=== PATIENT | female | born 1965 | race Caucasian/White ===

== ENCOUNTER 2019-05-31 13:55 | Emergency (ER) | payer OTHER ==
--- NOTE | 2019-05-31 14:02 | PDOC ---
Rapid Medical Evaluation Time Seen by Provider: 05/31/19 14:01 Medical Evaluation: 05/31/19 14:01 I have performed a brief in-person evaluation of this patient. The patient presents with a chief complaint of: LLE pain on tamoxifen Pertinent physical exam findings: No swelling, erythema, cords. Multiple varicosities I have ordered the following: Sono The patient will proceed to the ED for further evaluation. 05/31/19 14:02 Discharge Disposition - Diagnosis Leg pain - Referrals - Patient Instructions - Post Discharge Activity
[2019-05-31 14:04] VITALS: PULSE 84; TEMP 98.6; BMI 19.3
[2019-05-31 14:05] VITALS: BP 123/73
--- NOTE | 2019-05-31 15:16 | PDOC ---
History of Present Illness - General Chief Complaint: Pain Stated Complaint: PAIN Time Seen by Provider: 05/31/19 14:01 History Source: Patient Exam Limitations: No Limitations - History of Present Illness Initial Comments: 05/31/19 14:12 53-year-old female currently on tamoxifen presents to the ED with complaints of left lower extremity soreness worsen to the calf and ankle region. Patient states area appears slightly swollen. Patient denies injury but states has multiple varicose veins throughout her legs. Patient denies history of pulmonary embolism and denies difficulty breathing currently. Timing/Duration: intermittent Severity: mild Associated Symptoms: reports: denies symptoms Past History - Travel Traveled outside of the country in the last 30 days: No Close contact w/someone who was outside of country & ill: No - Past Medical History Cancer: Yes COPD: No - Suicide/Smoking/Psychosocial Hx Smoking History: Never smoked Have you smoked in the past 12 months: No Information on smoking cessation initiated: No Hx Alcohol Use: No Drug/Substance Use Hx: No Patient Lives Alone: No Lives with/in: spouse/SO Review of Systems - Review of Systems Able to Perform ROS?: Yes Constitutional: No: Symptoms Reported HEENTM: No: Symptoms Reported Respiratory: No: Symptoms reported Cardiac (ROS): Yes: Edema ABD/GI: No: Symptoms Reported : No: Symptoms Reported Musculoskeletal: Yes: Muscle Pain (left calf) Integumentary: No: Symptoms Reported Neurological: No: Symptoms reported Endocrine: No: Symptoms Reported Hematologic/Lymphatic: No: Symptoms Reported *Physical Exam - Vital Signs Last Vital Signs Temp Pulse Resp BP Pulse Ox 98.6 F 84 18 123/73 100 05/31/19 14:02 05/31/19 14:02 05/31/19 14:02 05/31/19 14:02 05/31/19 14:02 - Physical Exam General Appearance: Yes: Nourished, Appropriately Dressed. No: Apparent Distress Respiratory/Chest: positive: Lungs Clear, Normal Breath Sounds. negative: Respiratory Distress, Accessory Muscle Use Cardiovascular: positive: Regular Rhythm, Regular Rate. negative: Murmur Vascular Pulses: Dorsalis-Pedis (R): 2+, Doralis-Pedis (L): 2+ Gastrointestinal/Abdominal: positive: Soft. negative: Tenderness Extremity: positive: Normal Capillary Refill, Normal Inspection, Normal Range of Motion, Swelling (mild trace- 1+ nonpitting to bilateral lower extremities), Other (multiple varicosities to bilateral lower extremities). negative: Tender , Calf Tenderness Integumentary: positive: Normal Color, Warm, Moist Medical Decision Making - Medical Decision Making 05/31/19 14:16 CC: Left lower extremity discomfort along with mild swelling noted since yesterday no other complaints. Patient on tamoxifen. Exam. Patient with trace to minimal bilateral lower extremity edema with no reproducible tenderness. Homans sign negative. Plan left duplex of the lower extremity 05/31/19 15:57 Duplex of lower extremity showed no DVT. Bakers cyst of the left popliteal fossa measuring 2. 0.4 x 1.4 cm. *DC/Admit/Observation/Transfer Diagnosis at time of Disposition: Leg pain, Guzmán's cyst of knee - Discharge Dispostion Disposition: HOME Condition at time of disposition: Good - Referrals Referrals: Lissett Leong [Primary Care Provider] - - Patient Instructions Printed Discharge Instructions: Bakers Cyst Additional Instructions: Your Ultrasound was negative for clot. At this time they noticed a cyst behind her left knee which may be causing some your symptoms. Follow-up with her doctor and take copy of the ultrasound report with you. Otherwise you can take Motrin 600 mg at 975 of Tylenol every 6-8 hours for adequate pain control. - Post Discharge Activity
== END 2019-05-31 16:09 | disposition home or self-care (01) ==
LOC: JER 13:55
DX: M71.22 Synovial cyst of popliteal space [Baker], left knee (principal)
CPT/HCPCS: 93971-TC; 99281-25

== ENCOUNTER 2025-05-02 16:37 | Emergency (ER) | payer OTHER ==
[2025-05-02 16:44] VITALS: RESP 18; BMI 27.8
[2025-05-02] MEDS ORDERED: ACETAMINOPHEN 325 MG TABLET (FP) ONE (17:58)
[2025-05-02] MEDS: ACETAMINOPHEN 325 MG TABLET (FP) PO ONE (18:01)
[2025-05-02 18:31] VITALS: BP 123/75; PULSE 64; TEMP 97.9
== END 2025-05-02 18:41 | disposition home or self-care (01) ==
LOC: JER 16:37
DX: S93.401A Sprain of unspecified ligament of right ankle, initial encounter (principal); S96.911A Strain of unspecified muscle and tendon at ankle and foot level, right foot, initial encounter; X50.1XXA Overexertion from prolonged static or awkward postures, initial encounter
CPT/HCPCS: 73610-TC-RT-FY; 93971-TC; 99284-25

== ENCOUNTER 2025-05-27 05:10 | Day surgery (SDC) | payer OTHER ==
[2025-05-27 05:18] VITALS: BMI 27.9
[2025-05-27] MEDS ORDERED: MORPHINE SULFATE 2 MG/ML SYRINGE ONE (06:08)
[2025-05-27] MEDS ORDERED: ACETAMINOPHEN INJECTION 100 ML ONE (06:08)
[2025-05-27] MEDS: ACETAMINOPHEN 1000 MG/100 ML BAG IVPB ONE (06:23)
[2025-05-27] MEDS: SODIUM CHLORIDE 0.9% 500 ML INFUS.BAG IV ONE (06:23)
[2025-05-27] MEDS ORDERED: ONDANSETRON 4 MG/2 ML VIAL ONE ×2 (06:24→11:06)
[2025-05-27] MEDS: ONDANSETRON 4 MG/2 ML VIAL IVPUSH ONE (06:31)
[2025-05-27] MEDS: morphine CARPU-JECT 2 MG/1 ML DISP.SYRIN IVPUSH ONE (06:32)
[2025-05-27 06:54] LABS: ABSOLUTE IMMATURE GRANULOCYTES 0.04 x10^3/uL (0.0-0.031); BASOPHILS # 0.03 x10^3/uL (0.01-0.08); EOSINOPHIL % 1.6 % (0.7-5.8); EOSINOPHILS # 0.11 x10^3/uL (0.04-0.36); MCHC 32.8 g/dl (32.2-35.5); MEAN CELL VOLUME 89.3 fl (79.4-94.8); MEAN PLT VOLUME 10.4 fl (9.4-12.3); MONOCYTE # 0.42 x10^3/uL (0.24-0.86); MONOCYTE % 6.0 % (4.7-12.5); RDW 12.7 % (12.3-16.6)
[2025-05-27 07:22] LABS: CO2 28.0 mmol/L (21-32); GLUCOSE,RANDOM 118.0 mg/dL (74-106); INR 0.96 (0.83-1.09); PROTHROMBIN TIME (PATIENT) 10.5 SEC (9.7-13.0)
[2025-05-27 07:25] LABS: CREATININE 0.6 mg/dL (0.55-1.3); SGOT/AST 14.0 U/L (15-37); SGPT/ALT 26.0 U/L (13-61)
[2025-05-27 07:27] LABS: TOT PROT 6.9 g/dl (6.4-8.2)
[2025-05-27 07:28] LABS: ALK PHOS 78.0 U/L (45-117)
[2025-05-27 09:01] LABS: URINE APPEARANCE CLEAR; URINE BILIRUBIN NEGATIVE (NEGATIVE); URINE COLOR YELLOW; URINE GLUCOSE (UA) NEGATIVE (NEGATIVE); URINE KETONE NEGATIVE (NEGATIVE); URINE LEUK ESTERASE NEGATIVE (NEGATIVE); URINE NITRITE NEGATIVE (NEGATIVE); URINE PROTEIN NEGATIVE (NEGATIVE); URINE UROBILINOGEN 0.2 mg/dL (0.2-1.0)
[2025-05-27 09:51] LABS: INR 0.98 (0.83-1.09); PROTHROMBIN TIME (PATIENT) 10.8 SEC (9.7-13.0)
[2025-05-27 09:54] LABS: ACTIVATED PTT 27.1 SECONDS (25.2-36.5)
[2025-05-27] MEDS ORDERED: ENOXAPARIN NA (PORCINE) 40 MG/0.4 ML DISP.SYRIN SQ SCH (10:00)
[2025-05-27] MEDS ORDERED: ONDANSETRON 4 MG/2 ML VIAL IM PRN (10:05)
[2025-05-27] MEDS ORDERED: HYDROmorphone HCL CARPU-JECT 2 MG/1 ML DISP.SYRIN ONE (11:05)
[2025-05-27] MEDS: HYDROmorphone HCL CARPU-JECT 2 MG/1 ML DISP.SYRIN IVPUSH PRN (11:13)
[2025-05-27] MEDS: ONDANSETRON 4 MG/2 ML VIAL IVPUSH PRN (11:15)
[2025-05-27] MEDS: LACTATED RINGERS SOLUTION 1,000 ML/1,000 ML INFUS.BAG IV SCH (11:15)
[2025-05-27] MEDS ORDERED: ALBUTEROL SO4 2.5/IPRATROPIUM 0.5 INH SOL 3 ML VIAL.NEB. NEB PRN (11:16)
[2025-05-27 13:35] LABS: HCV DIAGNOSTIC IN-HOUSE W/RFLX NON-REACTIVE (NONREACTIVE); HIV INTERPRETATION NEGATIVE (NEGATIVE)
[2025-05-27] MEDS: PANTOPRAZOLE SODIUM 40 MG VIAL IVPUSH SCH ×2 (15:14→21:27)
[2025-05-27] MEDS: ACETAMINOPHEN 1000 MG/100 ML BAG IVPB PRN (19:46)
[2025-05-27] MEDS: MELATONIN 5 MG TABLETS PO SCH (21:27)
[2025-05-27] MEDS: BUDESONIDE/FORMOTEROL FUMARATE 80-4.5 MCG (10.3 GM INHALER) IH SCH (21:28)
[2025-05-27] MEDS ORDERED: MELATONIN 5 MG TABLETS PO SCH (22:00)
[2025-05-28] MEDS ORDERED: ROCURONIUM BROMIDE 50 MG/5 ML SYRINGE ONE (08:03)
[2025-05-28] MEDS ORDERED: MIDAZOLAM HCL 2 MG/2 ML SINGLE DOSE VIAL ONE (08:03)
[2025-05-28] MEDS ORDERED: PROPOFOL 40 ML ONE (08:03)
[2025-05-28] MEDS ORDERED: SUGAMMADEX SODIUM 200 MG/2 ML VIAL ONE (08:03)
[2025-05-28] MEDS ORDERED: ALBUTEROL SO4 HFA INHALER IH ONE (08:27)
[2025-05-28] MEDS ORDERED: GLYCOPYRROLATE 0.2 MG/1 ML VIAL ONE (08:36)
[2025-05-28] MEDS ORDERED: cefOXitin SODIUM 2 GM VIAL (RESTRICTED TO ID) IVPB ONE (08:44)
[2025-05-28] MEDS ORDERED: HEPARIN NA (PORCINE) 5,000 UNITS/ML 1ML VIAL ONE (08:44)
[2025-05-28] MEDS: cefOXitin SODIUM 2 GM VIAL (RESTRICTED TO ID) IVPB ONE (08:45)
[2025-05-28] MEDS ORDERED: DEXAMETHASONE SOD PHOSPHATE 4 MG/1 ML VIAL ONE (08:48)
[2025-05-28] MEDS ORDERED: ONDANSETRON 4 MG/2 ML VIAL ONE (08:48)
[2025-05-28] MEDS: BUPIVACAINE HCL/PF 0.25% (2.5MG/ML) 10 ML VIAL IJ ONE (08:52)
[2025-05-28 09:16] LABS: ABSOLUTE IMMATURE GRANULOCYTES 0.05 x10^3/uL (0.0-0.031); BASOPHILS # 0.03 x10^3/uL (0.01-0.08); EOSINOPHIL % 0.5 % (0.7-5.8); EOSINOPHILS # 0.06 x10^3/uL (0.04-0.36); MCHC 33.1 g/dl (32.2-35.5); MEAN CELL VOLUME 86.8 fl (79.4-94.8); MEAN PLT VOLUME 10.7 fl (9.4-12.3); MONOCYTE # 0.78 x10^3/uL (0.24-0.86); MONOCYTE % 6.9 % (4.7-12.5); RDW 12.6 % (12.3-16.6)
[2025-05-28] MEDS ORDERED: ONDANSETRON 4 MG/2 ML VIAL IVPUSH PRN ×3 (09:51→10:13)
[2025-05-28 09:57] LABS: GLUCOSE,RANDOM 127.0 mg/dL (74-106)
[2025-05-28 09:58] LABS: CO2 26.0 mmol/L (21-32)
[2025-05-28 10:00] LABS: CREATININE 0.6 mg/dL (0.55-1.3); SGPT/ALT 28.0 U/L (13-61)
[2025-05-28] MEDS ORDERED: ENOXAPARIN NA (PORCINE) 40 MG/0.4 ML DISP.SYRIN SQ SCH (10:00)
[2025-05-28 10:01] LABS: SGOT/AST 18.0 U/L (15-37)
[2025-05-28 10:02] LABS: TOT PROT 6.7 g/dl (6.4-8.2)
[2025-05-28 10:03] LABS: ALK PHOS 96.0 U/L (45-117)
[2025-05-28] MEDS: ACETAMINOPHEN 1000 MG/100 ML BAG IVPB ONE (10:06)
[2025-05-28] MEDS: LACTATED RINGERS SOLUTION 1,000 ML IV SCH ×2 (10:08→10:19)
[2025-05-28] MEDS ORDERED: ALBUTEROL SO4 2.5/IPRATROPIUM 0.5 INH SOL 3 ML VIAL.NEB. NEB PRN (10:13)
[2025-05-28] MEDS ORDERED: LACTATED RINGERS SOLUTION 1,000 ML/1,000 ML INFUS.BAG IV SCH (10:13)
[2025-05-28] MEDS: ACETAMINOPHEN 1000 MG/100 ML BAG IVPB PRN (15:12)
[2025-05-28 15:15] VITALS: BP 113/71; PULSE 78; RESP 18; TEMP 97.9
[2025-05-28] MEDS: SIMETHICONE 80 MG TAB.CHEW (FP) PO PRN (17:20)
[2025-05-28] MEDS ORDERED: MELATONIN 5 MG TABLETS PO SCH (22:00)
[2025-05-28] MEDS ORDERED: PANTOPRAZOLE SODIUM 40 MG VIAL IVPUSH SCH (22:00)
[2025-05-28] MEDS ORDERED: BUDESONIDE/FORMOTEROL FUMARATE 80-4.5 MCG (10.3 GM INHALER) IH SCH (22:00)
[2025-05-29] MEDS ORDERED: LACTOBACILLUS ACIDOPHILUS 1 TABLET PO SCH (10:00)
== END 2025-05-28 18:39 | disposition home or self-care (01) ==
LOC: JER 05:10 → UNDOADMOB 09:19 → JASUSAT 09:19 → SUATTDRO 09:19 → JERBED 09:19 → J8W 16:57 → JERBED 16:57 → J8W 05-28 13:56 → JASUSAT 05-28 18:39
PROVIDERS: ATTEND Nurse Practitioner Acute Care
PROC: 3E033NZ Introduction of Analgesics, Hypnotics, Sedatives into Peripheral Vein, Percutaneous Approach (ICD-10-PCS; principal; 2025-05-27)
PROC: 3E033GC Introduction of Other Therapeutic Substance into Peripheral Vein, Percutaneous Approach (ICD-10-PCS; 2025-05-27)
DX: R10.11 Right upper quadrant pain (principal); R11.0 Nausea
CPT/HCPCS: 36415; 71045-TC-FY; 76705-TC; 78226-TC; 80053; 81003; 83690; 83735; 84100; 84484; 85025; 85610; 85730; 86803; 86850; 86900; 86901; 87086; 87389; 93005; 93010; 94760; 99285-25; A9537